=== PATIENT | female | born 1995 | race Caucasian/White ===

== ENCOUNTER 2017-04-12 04:16 | Emergency (ER) | payer MEDICAID ==
[~2017-04-12] VITALS: Ht 167.6 cm; Wt 61.0 kg
[2017-04-12 06:25] VITALS: BP 111/62
== END 2017-04-12 06:30 | disposition left against medical advice (07) ==
LOC: ER 04:17
DX: R07.9 Chest pain, unspecified (principal); R11.10 Vomiting, unspecified; Z53.21 Procedure and treatment not carried out due to patient leaving prior to being seen by health care provider
CPT/HCPCS: 93005; 99281

== ENCOUNTER 2018-05-21 21:29 | Emergency (ER) | payer MEDICAID ==
[~2018-05-21] VITALS: Ht 167.6 cm; Wt 50.0 kg
[2018-05-21 21:38] VITALS: BP 134/80
== END 2018-05-21 22:39 | disposition home or self-care (01) ==
LOC: ER 21:29
DX: K08.89 Other specified disorders of teeth and supporting structures (principal)
CPT/HCPCS: 99281

== ENCOUNTER 2018-05-25 15:02 | Emergency (ER) | payer MEDICAID ==
[~2018-05-25] VITALS: Ht 167.6 cm; Wt 57.0 kg
[2018-05-25 15:28] LABS: CLARITY,URINE SLIGHTLY CLOUDY (Clear); COLOR,URINE YELLOW (Yellow); GLUCOSE, URINE NEGATIVE (Neg); KETONES,URINE NEGATIVE (Neg); LEUKOCYTE ESTERASE ,URINE NEGATIVE (Neg); NITRITES, URINE NEGATIVE (Neg); OCCULT BLOOD,URINE NEGATIVE (Neg); PH,URINE 6.5 (4.8-8.0); PROTEIN,URINE NEGATIVE (Neg); UROBILINOGEN,URINE 0.2 E.U/dL (0.2-1.0)
[2018-05-25 15:29] LABS: UA COLLECTION TYPE CLN CATCH MIDSTREAM
[2018-05-25 15:37] LABS: URINE HCG POSITIVE (NEG)
[2018-05-25 15:45] LABS: BASOPHILS % (AUTO) 0.8 % (0-1); EOSINOPHILS # (AUTO) 0.1 X10'3 (0-0.9); EOSINOPHILS % (AUTO) 2.4 % (0-6); HEMATOCRIT 36.8 % (35.0-45.0); HEMOGLOBIN 12.2 g/dl (12.0-16.0); LYMPHOCYTES # (AUTO) 1.9 X10'3 (1.1-4.8); LYMPHOCYTES % (AUTO) 32.7 % (21-51); MEAN CORPUSCULAR HEMOGLOBIN 26.6 PG (27.0-31.0); MEAN CORPUSCULAR HGB CONC 33.1 g/dL (33.0-36.5); MEAN CORPUSCULAR VOLUME 80.3 FL (78-98); MEAN PLATELET VOLUME 10.3 FL (7.4-10.4); MONOCYTES # (AUTO) 0.4 X10'3 (0-0.9); MONOCYTES % (AUTO) 7.1 % (2-12); NEUTROPHILS # (AUTO) 3.3 X10'3 (1.8-7.7); PLATELET COUNT 198 X10'3 (140-440); RED BLOOD COUNT 4.59 X10'6 (4.20-5.60); RED CELL DISTRIBUTION WIDTH 15.1 % (11.5-14.5); WHITE BLOOD COUNT 5.7 X10'3 (4.5-11.0)
[2018-05-25 15:53] LABS: PROTHROMBIN TIME 10.5 SECONDS (9.0-12.0)
[2018-05-25 15:53] LABS: MUCUS STRANDS MODERATE /LPF (Neg); SQUAMOUS EPITHELIAL CELL,UR FEW /LPF (FEW)
[2018-05-25 15:56] LABS: BACTERIA,URINE NONE SEEN /HPF (Neg); RBC,URINE 0-2 /HPF (0-2); WBC,URINE 0-4 /HPF (0-4)
[2018-05-25 15:58] LABS: ALANINE AMINOTRANSFERASE 20 U/L (12-78); ALBUMIN 4.4 G/DL (3.4-5.0); ALBUMIN/GLOBULIN RATIO 1.3 (1.1-1.5); ALKALINE PHOSPHATASE 60 IU/L (46-116); ANION GAP 8 (8-16); ASPARTATE AMINO TRANSFERASE 18 U/L (10-37); BILIRUBIN,TOTAL 0.4 MG/DL (0.1-1.0); BLOOD UREA NITROGEN 11 MG/DL (7-18); BUN/CREATININE RATIO 17.5 (6.6-38.0); CALCIUM 9.5 MG/DL (8.5-10.1); CHLORIDE 104 MMOL/L (99-107); CREATININE 0.63 MG/DL (0.40-0.90); GLUCOSE 92 MG/DL (70-104); POTASSIUM 3.2 MMOL/L (3.5-5.1); SODIUM 141 MMOL/L (135-145); TOTAL CARBON DIOXIDE 28.6 MMOL/L (24-32); TOTAL PROTEIN 7.9 G/DL (6.4-8.2); eGFR > 90 ML/MIN
[2018-05-25 16:00] LABS: HYALINE CASTS 0-3 /LPF (NEGATIVE)
--- NOTE | 2018-05-25 16:44 | NUR ---
LAST PERIOD: STARTED MAY 16: "NORMAL PERIOD FOR 4-5 DAYS, SINCE LAST WEDNESDAY: BROWN SPOTTING, CHANGING PAD 3X DAY 2 /2 C SECTIONS/ 2 KIDS
--- NOTE | 2018-05-25 16:47 | NUR ---
INCREASED PAIN AFTER EATING CHEESE ENCHILADAS FOCAL EPIGASTRIC AND UPPER RIGHT SIDE
[2018-05-25] MEDS ORDERED: mag hydrox/Alum hydrox/simeth 30ml oral suspension PO ONE (16:55)
[2018-05-25] MEDS ORDERED: LIDOcaine Viscous 15ml cup PO ONE (16:55)
[2018-05-25 17:05] LABS: LIPASE 91 U/L (73-393)
--- NOTE | 2018-05-25 17:19 | NUR ---
DISCUSSED SMART OF CARE WITH CECILIA CUELLAR; GI COCKTAIL GIVEN, REORT TO SCOOBY IVORY
[2018-05-25 17:35] LABS: BETA HCG,QUANTITATIVE 55 mIU/ml
[2018-05-25] MEDS ORDERED: KETO10TA2 PO (18:02)
[2018-05-25] MEDS ORDERED: OMEP10CA4 PO (18:10)
[2018-05-25 18:11] VITALS: BP 122/70
--- NOTE | 2018-05-25 18:25 | NUR ---
US AT BEDSIDE
== END 2018-05-25 19:01 | disposition home or self-care (01) ==
LOC: ER 15:02
DX: O20.0 Threatened abortion (principal); K29.00 Acute gastritis without bleeding; Z3A.00 Weeks of gestation of pregnancy not specified
CPT/HCPCS: 36415; 76817; 80053; 81001; 81025; 83690; 84702; 85025; 85610; 93005; 99284

== ENCOUNTER 2018-05-28 11:12 | Emergency (ER) | payer MEDICAID ==
[~2018-05-28] VITALS: Ht 167.6 cm; Wt 56.0 kg
[~2018-05-28 11:12] MED LIST: KETO10TA2 PO; OMEP10CA4 PO
[2018-05-28 11:43] VITALS: BP 118/69
== END 2018-05-28 13:36 | disposition left against medical advice (07) ==
LOC: ER 11:13
DX: Z53.21 Procedure and treatment not carried out due to patient leaving prior to being seen by health care provider (principal)

== ENCOUNTER 2024-04-12 17:09 | Emergency (ER) | payer MEDICAID ==
[~2024-04-12] VITALS: Ht 167.6 cm; Wt 60.1 kg
[~2024-04-12 17:09] MED LIST changes: -OMEP10CA4 PO; +OMEP10CA5 PO
[2024-04-12 17:24] VITALS: BP 100/47; PULSE 68; RESP 18; TEMP 97.4; O2SAT 100
== END 2024-04-12 19:31 | disposition left against medical advice (07) ==
LOC: ER 17:10
DX: Z53.21 Procedure and treatment not carried out due to patient leaving prior to being seen by health care provider (principal)
CPT/HCPCS: 36415; 84702